=== PATIENT | female | born 1995 | race American Indian/Alaskan Native ===

== ENCOUNTER 2016-07-16 10:42 | Inpatient (IN) | payer MEDICAID ==
[2016-07-16] MEDS ORDERED: SUBLIMAZE IV PRN (10:50)
[2016-07-16] MEDS ORDERED: ePHEDrine SULFATE IV PRN (10:50)
[2016-07-16] MEDS ORDERED: NARCAN 0.4 MG/1 ML IV PRN ×2 (10:50→21:16)
[2016-07-16] MEDS ORDERED: BRETHINE IVP PRN (10:50)
[2016-07-16] MEDS ORDERED: BRETHINE SUB-Q PRN (10:50)
[2016-07-16] MEDS ORDERED: CERVIDIL VG ONE (10:50)
[2016-07-16] MEDS ORDERED: XYLOCAINE 2% INFILTRATI ONE (10:50)
[2016-07-16] MEDS ORDERED: MINERAL OIL PO PRN (10:50)
[2016-07-16] MEDS ORDERED: LACTATED RINGERS 1,000 ML IV SCH ×2 (11:00→18:00)
[2016-07-16] MEDS ORDERED: PITOCin/NS 20 UNIT/1000ML DRIP 20 UNITS/1,000 ML BAG IV SCH ×3 (11:00→22:00)
--- NOTE | 2016-07-16 11:00 | History and Physical Report ---
History of Present Illness Date of examination: 07/16/16 Date of admission: 07/16/16 10:42 Chief complaint: Seen by [facility] today and they recommend delivery, Due to abnormal doppler flow and pericardial effusion History of present illness: 21 y/O , now 37 weeks with care at [facility] since 7 weeks gestation. Hx of trich on and off during the . Had u/S in the office yesterday and baby was at 3% for growth. 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 Family/Genetic History: none Social history: no significant social history - Obstetrical History Expected Date of Delivery: 08/06/16 Actual Gestation: 37 Week(s) 0 Day(s) : 1 Para: 0 Hx # Term Pregnancies: 0 Number of Living Children: 0 Medications and Allergies Allergies Allergy/AdvReac Type Severity Reaction Status Date / Time No Known Allergies Allergy Unverified 02/07/16 07:47 Home Medications Medication Instructions Recorded Confirmed Last Taken Type Gummies 2 tab PO DAILY 07/16/16 07/16/16 07/15/16 08:00 History Review of Systems All systems: negative - Physical Exam Breasts: Positive: deferred Cardiovascular: Regular rate Lungs: Positive: Clear to auscultation Abdomen: Positive: soft Genitourinary (Female): Positive: normal external genitalia Vulva: both: normal Vagina: Positive: normal moisture Uterus: Positive: enlarged Anus/Rectum: Positive: normal perianal skin Deep Tendon Reflex Grade: Normal +2 - Obstetrical Uterine Contraction Monitor Mode: External Cervical Dilatation: 0 (in office yesterday) Uterine Contraction Pattern: Absent Results Result Diagrams: 07/16/16 12:02 All other labs normal. Assessment and Plan A: 37 week induction of labor due to abnormal doppler flow, pericardial effusion , and ARCENIO 6.9 P; Cervadil ripening
[2016-07-16 12:25] LABS: Hematocrit 35.4 % (30.3-42.9); Hemoglobin 11.9 gm/dl (10.1-14.3); Mean Corpuscular HGB Conc 34 % (30-34); Mean Corpuscular Hemoglobin 31 pg (28-32); Mean Corpuscular Volume 94 fl (79-97); Platelet Count 229 K/mm3 (140-440); Red Blood Count 3.79 M/mm3 (3.65-5.03); Red Cell Distribution Width 14.3 % (13.2-15.2); White Blood Count 8.5 K/mm3 (4.5-11.0)
[2016-07-16] MEDS ORDERED: FLAGYL 500 MG/100 ML 500 MG/100 ML BAG IV SCH (14:00)
[2016-07-16] MEDS ORDERED: REGLAN IV SCH (17:27)
[2016-07-16] MEDS ORDERED: ANCEF/STERILE WATER 2 GM/20 ML 2 GM/20 ML SYRINGE IV ONE (17:57)
[2016-07-16] MEDS ORDERED: PEPCID IV ONE (18:00)
[2016-07-16] MEDS ORDERED: BICITRA PO ONE (18:00)
--- NOTE | 2016-07-16 19:27 | Event Note ---
Date: 07/16/16 Called to see patient to be having distress. Patient is 21-year-old at 37 weeks with complicated by IUGR EFW at the 1st percentile. Patient was apparently seen at [facility] today and abnormal Dopplers were noted. Patient also appears to have an enlarged heart taken up over 50% of the cavity. In view of patient's non-tolerance of labor with deep variable decelerations surgeon has made to proceed with primary . Patient has been consented and has signed. Also discussed with NICU extensively about patient's present diagnosis and suspected cardiomegaly of the fetus. Tool Dresser will be present at delivery per NICU
[2016-07-16] MEDS ORDERED: NACL 0.9% IR ONE (20:20)
[2016-07-16] MEDS ORDERED: WATER FOR IRRIG STERILE IR ONE (20:20)
[2016-07-16] MEDS ORDERED: MORPHINE ONE (21:00)
[2016-07-16] MEDS ORDERED: ZOFRAN ONE (21:00)
--- NOTE | 2016-07-16 21:14 | Operative Report ---
Operative Report Operative Report: DATE: 07/16/2016 PREOPERATIVE DIAGNOSIS: 21-year-old at 37 weeks, IUGR w/ EFW < 1%, cat 2 tracing, suspected cardiomegaly POSTOP DIAGNOSIS: Above NAME OF PROCEDURE: Primary low transverse section SURGEON: AMPARO OJEDA MD CURING OVEN TENDER: [] ANESTHESIA: Spinal EBL: 500 mL PATHOLOGY SPECIMEN: Placenta URINE OUTPUT: 100 mL FINDINGS: in cephalic presentation, time of was 20:35, infant weight was 4 lbs. 2 oz. or 1860 grams, Apgars 7 and 8, normal uterus tubes and ovaries bilaterally DESCRIPTION OF PROCEDURE: After informed consent, patient was taken to the operating room where she was prepped and draped in a sterile fashion. Pfannestial incision was performed 2 cm above the pubic symphysis. This was then carried down to the underlying rectus fascia which was scored in the midline. The fascial incision was extended laterally with the use of Perera scissors, anterior leaf was then grasped with Edie's elevated dissected sharply and bluntly off the underlying rectus. In a similar fashion the inferior leaf was grasped elevated dissected sharply and bluntly off the underlying rectus. The rectus was in the midline and the peritoneal cavity was entered without difficulty. After good visualization of the bladder the peritoneal layer was extended up and down; bladder blade was placed in the patient's pelvic cavity, bladder flap was created without difficulty. A hysterotomy incision was then performed with clear amniotic fluid noted. Infant in cephalic presentation was delivered without difficulty in the usual manner; cord was clamped cut and infant was handed over to waiting NICU staff. The placenta was then delivered intact, the uterus was then exteriorized cleared of all clots and debris. Her hysterotomy incision was then closed in a running locked fashion with 0 Vicryl on a CTX; using the same suture were able to imbricate the initial layer. The uterus was then returned to the patient's pelvic cavity; the peritoneal edges were grasped with hemostats and Maria D's; irrigation was used to clear the gutters of all clots and debris. Tisseel hemostatic agent was applied copiously over the hysterotomy incision. The bladder flap was then closed in a running fashion with 3-0 Vicryl. The peritoneal layer was closed in a running fashion with 3-0 Vicryl; the rectus was reapproximated with a single [id number] stitch. The fascia was then closed in a running fashion with 0 Vicryl; the subcutaneous layer was reapproximated with a single [id number] stitch. The skin was then closed in a subcuticular manner with 4-0 Monocryl. She tolerated the procedure well lap and instrument counts were correct 2, she did receive 2 grams of Ancef prior to the procedure. She is transferred to PACU in stable condition.
[2016-07-16] MEDS ORDERED: LANSINOH TP PRN (21:16)
[2016-07-16] MEDS ORDERED: SENOKOT PO PRN (21:16)
[2016-07-16] MEDS ORDERED: MYLICON PO PRN (21:16)
[2016-07-16] MEDS ORDERED: TUCKS PAD TP PRN (21:16)
[2016-07-16] MEDS ORDERED: TYLENOL PO PRN (21:16)
[2016-07-16] MEDS ORDERED: ANUCORT-HC PR PRN (21:16)
[2016-07-16] MEDS ORDERED: MOTRIN PO PRN (21:16)
[2016-07-16] MEDS ORDERED: ZOFRAN IV PRN (21:16)
[2016-07-16] MEDS ORDERED: MILK OF MAGNESIA PO PRN (21:16)
--- NOTE | 2016-07-16 21:25 | Anesthesia Consultation ---
Anesthesia Consult and Med Hx Date of service: 07/16/16 - Airway Anesthetic Teeth Evaluation: Good ROM Head & Neck: Adequate Mental/Hyoid Distance: Adequate Mallampati Class: Class II Intubation Access Assessment: Good - Pulmonary Exam CTA: Yes - Cardiac Exam Cardiac Exam: RRR - Pre-Operative Health Status ASA Pre-Surgery Classification: ASA2, Emergency Proposed Anesthetic Plan: Spinal - Pulmonary Hx Asthma: No COPD: No Hx Pneumonia: No - Cardiovascular System Hx Hypertension: No - Central Nervous System Hx Seizures: No Hx Psychiatric Problems: No - Endocrine Hx Renal Disease: No Hx End Stage Renal Disease: No Hx Hypothyroidism: No Hx Hyperthyroidism: No - Hematic Hx Anemia: No Hx Sickle Cell Disease: No - Other Systems Hx Alcohol Use: No
--- NOTE | 2016-07-16 21:26 | Anesthesia Day of Surgery ---
Anesthesia Day of Surgery - Day of Surgery Patient Examined: Yes Patient H&P Reviewed: Yes Patient is NPO: Yes (FSP)
--- NOTE | 2016-07-16 21:26 | Post Anesthesia Evaluation ---
- Post Anesthesia Evaluation Patient Participated: Yes Airway Patent: Yes Stable Respiratory Function: Yes Temp > 96.8F: Yes Pain Manageable: Yes Adequeate Hydration: Yes Anesthesia Complications: No Block Receding Appropriately: Yes
[2016-07-16] MEDS ORDERED: SODIUM CHLORIDE FLUSH SYRINGE 10 ML IV SCH (22:00)
[2016-07-16] MEDS ORDERED: D5LR 1,000 ML IV SCH (22:00)
[2016-07-17] MEDS: TORADOL IV PRN ×3 (00:53→21:49)
[2016-07-17 10:31] LABS: Hematocrit 33.6 % (30.3-42.9); Hemoglobin 11.2 gm/dl (10.1-14.3)
[2016-07-17] MEDS: FEOSOL PO SCH (12:07)
[2016-07-17] MEDS: PRENATAL VITAMIN PO SCH (12:07)
[2016-07-17] MEDS: PERCOCET 5/325 PO PRN (12:09)
--- NOTE | 2016-07-17 14:13 | Progress Note ---
Assessment and Plan A: POD #1 - stable P: Continue postop care Subjective - Subjective Date of service: 07/17/16 Principal diagnosis: Primary for intolerance of labor Interval history: 21 y/O , now 37 weeks with care at [facility] since 7 weeks gestation. Hx of trich on and off during the . Had u/S in the office yesterday and baby was at 3% for growth. Had [facility] F/U today, baby with pericardial effusion, abnormal doppler, and ARCENIO 6.9 Patient reports: appetite normal Volin: in NICU Objective - Vital Signs Latest vital signs: Vital Signs Temp Pulse Pulse Resp BP BP Pulse Ox 07/17/16 11:51 98.3 F 84 18 110/73 07/17/16 07:00 98.8 F 82 18 115/62 07/17/16 04:50 98.4 F 86 20 116/66 07/16/16 22:45 96 F L 77 18 125/79 07/16/16 22:14 98.0 F 07/16/16 22:06 85 13 121/79 100 07/16/16 22:00 84 11 L 121/79 100 07/16/16 21:55 76 11 L 116/72 100 07/16/16 21:50 78 20 108/59 99 07/16/16 21:45 82 15 101/69 99 07/16/16 21:40 88 21 103/73 100 07/16/16 21:36 82 15 103/73 99 07/16/16 21:30 82 19 108/72 98 07/16/16 21:25 87 9 L 102/70 98 07/16/16 21:20 81 10 L 101/57 97 07/16/16 21:16 97.6 F 90 16 96 07/16/16 21:14 96 07/16/16 19:22 85 118/76 07/16/16 19:00 97.8 F 07/16/16 18:09 86 115/66 07/16/16 17:39 91 H 113/75 07/16/16 16:14 98.0 F 18 Intake and Output 07/16/16 07/17/16 07/17/16 22:59 06:59 14:59 Intake Total 3200 240 Output Total 150 500 Balance 3050 -260 Intake: IV 3200 FLAGYL 500 MG/100 ML 500 100 mg In 100 ml @ 100 mls/hr IV Q12H NANCY Rx#: [id number] Lactated Ringers 1,000 ml 1000 @ 125 mls/hr IV DIRECT [facility] Rx#:[id number] Intake, Free Water 240 Output: Urine 150 500 Indwelling Catheter 500 Other: Total, Output Amount 500 Estimated Blood Loss 500 - Exam Breasts: Present: deferred Cardiovascular: Present: Regular rate Lungs: Present: Clear to auscultation Abdomen: Present: soft Vulva: both: normal Uterus: Present: fundal height below umbilicus Extremities: Present: normal Deep Tendon Reflex Grade: Normal +2 Incision: Present: dressed
[2016-07-18] MEDS: TORADOL IV PRN (07:00)
--- NOTE | 2016-07-18 09:49 | Progress Note ---
Assessment and Plan A: 2nd POD - stable P: ambulating, plan discharge in am Subjective - Subjective Principal diagnosis: Primary for intolerance of labor Interval history: 21 y/O , now 37 weeks with care at [facility] since 7 weeks gestation. Hx of trich on and off during the . Had u/S in the office yesterday and baby was at 3% for growth. Had [facility] F/U today, baby with pericardial effusion, abnormal doppler, and ARCENIO 6.9 Patient reports: appetite normal : in NICU Objective - Vital Signs Latest vital signs: Vital Signs Temp Pulse Resp BP 07/18/16 07:00 18 07/18/16 00:23 98.5 F 101 H 20 125/79 07/17/16 21:49 18 07/17/16 18:15 98 F 95 H 18 111/80 07/17/16 11:51 98.3 F 84 18 110/73 Intake and Output 07/17/16 07/18/16 07/18/16 22:59 06:59 14:59 Intake Total 780 Output Total 350 Balance 430 Intake: Oral 540 Intake, Free Water 240 Output: Urine 350 Indwelling Catheter 350 Other: Total, Intake Amount 540 Total, Output Amount 350 # Voids Indwelling Catheter 600 - Exam Breasts: Present: deferred Cardiovascular: Present: Regular rate Lungs: Present: Clear to auscultation Abdomen: Present: soft Vulva: both: normal Extremities: Present: normal Deep Tendon Reflex Grade: Normal +2 Incision: Present: intact
--- NOTE | 2016-07-18 09:50 | Discharge Summary ---
Providers - Providers Date of Admission: 07/16/16 10:42 Date of discharge: 07/19/16 Attending physician: YOU FISHER MD Primary care physician: ELEPHANT KEEPER Hospitalization Reason for admission: induction of labor Delivery: Procedure: section Episiotomy: none Laceration: none complications: none Discharge diagnosis: IUP at term delivered baby: male Condition at discharge: Good Disposition: DISCHARGED TO HOME OR SELFCARE Plan - Discharge Medications Prescriptions: Ibuprofen [Motrin 600 MG tab] 600 mg PO Q8H PRN #30 tablet PRN Reason: Pain Multivitamin with Iron [Multivitamins with Iron] 1 each PO DAILY #30 tablet oxyCODONE /ACETAMINOPHEN [Percocet 5/325] 1 tab PO Q6HR PRN #30 tablet PRN Reason: Pain - Provider Discharge Summary Additional instructions: [] Smoking cessation referral if applicable(refer to patient education folder for contact #) [] Refer to [facility] Booklet Call your doctor immediately for: * Fever > 100.5 * Heavy vaginal bleeding ( >1 pad per hour) * Severe persistent headache * Shortness of breath * Reddened, hot, painful area to leg or breast * Drainage or odor from incision. * Keep incision clean and dry at all times and follow doctor's instructions regarding bathing/showering - Follow up plan Follow up: [facility] [Provider Group] - 14 Days
[2016-07-18] MEDS: PRENATAL VITAMIN PO SCH (18:42)
[2016-07-18] MEDS: FEOSOL PO SCH (18:42)
[2016-07-18] MEDS: PERCOCET 5/325 PO PRN (19:31)
[2016-07-19] MEDS: PERCOCET 5/325 PO PRN (18:14)
[2016-07-19 18:57] VITALS: BP 135/78
== END 2016-07-19 21:20 | disposition home or self-care (01) | DRG 765 ==
LOC: LD 10:42 → OB 22:52
PROVIDERS: ADMIT Obstetrics & Gynecology; ATTEND Obstetrics & Gynecology
PROC: 10D00Z1 Extraction of Products of Conception, Low, Open Approach (ICD-10-PCS; principal; 2016-07-16)
DX: O77.9 Labor and delivery complicated by fetal stress, unspecified (principal); O98.82 Other maternal infectious and parasitic diseases complicating childbirth; A59.9 Trichomoniasis, unspecified; O36.5930 Maternal care for other known or suspected poor fetal growth, third trimester, not applicable or unspecified; Z3A.37 37 weeks gestation of pregnancy; Z37.0 Single live birth
CPT/HCPCS: 36415; 59200; 85014; 85018; 85027; 86850; 86900; 86901; 88307; 99211; C9250; G0463; J0690; J1885; J2270; J2405; J2590; J2765; J7120; J7121

== ENCOUNTER 2017-01-09 13:43 | Emergency (ER) | payer MEDICAID ==
[2017-01-09 13:53] VITALS: BP 107/71
== END 2017-01-09 14:45 | disposition left against medical advice (07) ==
LOC: ED 13:43
DX: R55 Syncope and collapse (principal); E86.0 Dehydration; Z53.21 Procedure and treatment not carried out due to patient leaving prior to being seen by health care provider
CPT/HCPCS: 93005; 93010

== ENCOUNTER 2018-08-16 09:03 | Emergency (ER) | payer MEDICAID ==
[2018-08-16 09:13] VITALS: BP 103/61
[2018-08-16 10:02] LABS: Bacteria,Urine 1+ /HPF (Negative); Bilirubin,Urine NEG (Negative); Blood,Urine NEG (Negative); Color,Urine Yellow (Yellow); Mucus,Urine FEW /HPF; Protein,Urine <15 mg/dL mg/dL (Negative); Urobilinogen,Urine < 2.0 mg/dL (<2.0)
[2018-08-16 10:19] LABS: HCG Qualitative,Urine Positive (Negative)
--- NOTE | 2018-08-16 11:19 | XRay Report ---
XR spine cervical 2-3V INDICATION / CLINICAL INFORMATION: Pain after fall. COMPARISON: None available. FINDINGS: BONES/JOINT(S): No vertebral fracture. No significant degenerative changes. SOFT TISSUES: No significant abnormality. ADDITIONAL FINDINGS: None. Signer Name: Hola Edwards MD Signed: 08/16/2018 11:14 AM Workstation Name: [id number]
--- NOTE | 2018-08-16 13:25 | Ultrasound Report ---
FIRSTTRIMESTER OBSTETRIC ULTRASOUND HISTORY: Abdominal pain during , acute pelvic pain COMPARISON: None. TECHNIQUE: Routine transabdominal and transvaginal OB ultrasound performed. FINDINGS: Uterus: The uterus is anteverted and normal size measuring 8.9 x 5.3 x 7.2 cm. Gestational Sac: The gestational sac appears irregular and elongated Yolk Sac: Normal in appearance. Fetus/Embryo: [place] 1-rump length of 0.31 cm, corresponding to an estimated gestational age of 7 weeks 6 days. Embryonic/ anatomy is too small for evaluation. Embryonic/ cardiac activity: 0bpm Placenta: Too small for evaluation. Amniotic fluid volume: Subjectively appropriate for gestational age. Ovaries: The right ovary is normal in size and appearance with normal blood flow, measuring 2.9 x 1. 6 x 2.2 cm. The left ovary is normal in size and appearance with normal blood flow, measuring 3.5 x 2.9 x 2.2 cm. Hypoechoic space-occupying mass in the left ovary with peripheral vascularity is most likely the corpus luteum. Additional findings: There is debris within the lower uterine segment which may represent blood produ cts. IMPRESSION Findings consistent with demise. Signer Name: Miguel Frazier Jr, MD Signed: 08/16/2018 1:21 PM Workstation Name: [id number]
--- NOTE | 2018-08-16 14:14 | Emergency Department Report ---
ED General Adult HPI - General Chief complaint: Dizziness Stated complaint: SICK Time Seen by Provider: 08/16/18 09:39 Source: patient Mode of arrival: Ambulatory Limitations: No Limitations - History of Present Illness Initial comments: Patient is a 23-year-old female who is approximately 8-9 weeks who is here for 2 issues. Issue #1 is a patient fell at work 2 days ago and has some generalized neck discomfort. Patient states she was seen at [facility] after the fall and she states no known did anything for. Patient states she has some achy pains as a 5 out of 10 in severity her is worse with movement better with rest. Patient slipped on a wet floor. There was no loss of consciousness and no head injury. Patient's other issue is that she also has some lower abdominal crampiness. Patient has had this for the last 2 days. Patient has had no vaginal bleeding. Patient saw to TW[facility] DOFFER's this week. The first stated that her baby had no heartbeat and wanted to give her medications to initiate an . The second physician stated that he believes she was very early in her and just needed more time before heartbeat could be seen. Patient is confused about what going on with her and is here for a third opinion Severity scale (0 -10): 10 - Related Data Home Medications Medication Instructions Recorded Confirmed Last Taken Gummies 2 tab PO DAILY 07/16/16 07/16/16 07/15/16 08:00 Previous Rx's Medication Instructions Recorded Last Taken Type Ibuprofen [Motrin 600 MG tab] 600 mg PO Q8H PRN #30 tablet 07/16/16 Unknown Rx Multivitamin with Iron 1 each PO DAILY #30 tablet 07/16/16 Unknown Rx [Multivitamins with Iron] oxyCODONE /ACETAMINOPHEN [Percocet 1 tab PO Q6HR PRN #30 tablet 07/16/16 Unknown Rx 5/325] Cyclobenzaprine [Flexeril] 5 mg PO TID PRN #10 tablet 08/16/18 Unknown Rx Allergies Allergy/AdvReac Type Severity Reaction Status Date / Time No Known Allergies Allergy Verified 08/16/18 09:05 ED Review of Systems ROS: Stated complaint: SICK Other details as noted in HPI Comment: All other systems reviewed and negative ED Past Medical Hx - Past Medical History Previous Medical History?: No Hx Hypertension: No Hx Congestive Heart Failure: No Hx Diabetes: No Hx Deep Vein Thrombosis: No Hx Renal Disease: No Hx Sickle Cell Disease: No Hx Seizures: No Hx Asthma: No Hx COPD: No Hx HIV: No - Surgical History Past Surgical History?: Yes Additional Surgical History: - Social History Smoking Status: Never Smoker Substance Use Type: None - Medications Home Medications: Home Medications Medication Instructions Recorded Confirmed Last Taken Type Ibuprofen [Motrin 600 MG tab] 600 mg PO Q8H PRN #30 tablet 07/16/16 Unknown Rx Multivitamin with Iron 1 each PO DAILY #30 tablet 07/16/16 Unknown Rx [Multivitamins with Iron] Gummies 2 tab PO DAILY 07/16/16 07/16/16 07/15/16 08:00 History oxyCODONE /ACETAMINOPHEN [Percocet 1 tab PO Q6HR PRN #30 tablet 07/16/16 Unknown Rx 5/325] Cyclobenzaprine [Flexeril] 5 mg PO TID PRN #10 tablet 08/16/18 Unknown Rx ED Physical Exam - General Limitations: No Limitations General appearance: alert, in no apparent distress - Head Head exam: Present: atraumatic, normocephalic - Eye Eye exam: Present: normal appearance - ENT ENT exam: Present: mucous membranes moist - Neck Neck exam: Present: normal inspection, tenderness (generalized) - Respiratory Respiratory exam: Present: normal lung sounds bilaterally. Absent: respiratory distress, wheezes, rales, rhonchi - Cardiovascular Cardiovascular Exam: Present: regular rate, normal rhythm. Absent: systolic murmur, diastolic murmur, rubs, gallop - GI/Abdominal GI/Abdominal exam: Present: soft, normal bowel sounds - Extremities Exam Extremities exam: Present: normal inspection - Back Exam Back exam: Present: normal inspection - Neurological Exam Neurological exam: Present: alert, oriented X3 - Psychiatric Psychiatric exam: Present: normal affect, normal mood - Skin Skin exam: Present: warm, dry, intact, normal color. Absent: rash ED Course Vital Signs 08/16/18 08/16/18 09:10 09:31 Temperature 97.4 F L Pulse Rate 82 Respiratory 18 15 Rate Blood Pressure 103/61 [Right] O2 Sat by Pulse 99 Oximetry ED Medical Decision Making - Lab Data Lab Results 08/16/18 08/16/18 Range/Units 09:24 10:16 HCG, Quant [id number] H (0-4) mIU/mL Urine Color Yellow (Yellow) Urine Turbidity Slightly-cloudy (Clear) Urine pH 6.0 (5.0-7.0) Ur Specific [place] 1.016 (1.003-1.030) Urine Protein <15 mg/dl (Negative) mg/dL Urine Glucose (UA) Neg (Negative) mg/dL Urine Ketones Neg (Negative) mg/dL Urine Blood Neg (Negative) Urine Nitrite Neg (Negative) Urine Bilirubin Neg (Negative) Urine Urobilinogen < 2.0 (<2.0) mg/dL Ur Leukocyte Esterase Mod (Negative) Urine WBC (Auto) 1.0 (0.0-6.0) /HPF Urine RBC (Auto) 2.0 (0.0-6.0) /HPF U Epithel Cells (Auto) 4.0 (0-13.0) /HPF Urine Bacteria (Auto) 1+ (Negative) /HPF Urine Mucus Few /HPF Urine HCG, Qual Positive A (Negative) - Radiology Data [facility] [address] [place] [address] Ultrasound Report Signed Patient: KONRAD CASTRO MR #: [id number] : 1995 Acct:[id number] Age/Sex: 23 / F ADM Date: 08/16/18 Loc: ED Attending Dr: Ordering Physician: STEPHANIE PRINCE MD Date of Service: 08/16/18 Procedure(s): OB transvaginal Accession Number(s): [id number] cc: STEPHANIE PRINCE MD [facility]IME[facility] OBSTETRIC ULTRASOUND HISTORY: Abdominal pain during , acute pelvic pain COMPARISON: None. TECHNIQUE: Routine transabdominal and transvaginal OB ultrasound performed. FINDINGS: Uterus: The uterus is anteverted and normal size measuring 8.9 x 5.3 x 7.2 cm. Gestational Sac: The gestational sac appears irregular and elongated Yolk Sac: Normal in appearance. Fetus/Embryo: [place]-rump length of 0.31 cm, corresponding to an estimated gestational age of 7 weeks 6 days. Embryonic/ anatomy is too small for evaluation. Embryonic/ cardiac activity: 0bpm Placenta: Too small for evaluation. Amniotic fluid volume: Subjectively appropriate for gestational age. Ovaries: The right ovary is normal in size and appearance with normal blood flow, measuring 2.9 x 1.6 x 2.2 cm. The left ovary is normal in size and appearance with normal blood flow, measuring 3.5 x 2.9 x 2.2 cm. Hypoechoic space-occupying mass in the left ovary with peripheral vascularity is most likely the corpus luteum. Additional findings: There is debris within the lower uterine segment which may represent blood products. IMPRESSION Findings consistent with demise. Signer Name: Miguel Jensen Jr, MD Signed: 08/16/2018 1:21 PM Workstation Name: [id number] Transcribed By: TTR Dictated By: MIGUEL JENSEN JR, MD Electronically Authenticated By: MIGUEL JENSEN JR, MD Signed Date/Time: 08/16/18 1321 C spine XR withibn normal limits - Medical Decision Making Patient is a 23-year-old female who had a fall 2 days ago and also sessile crampy lower abdominal pain and is worried about miscarriage. Regarding the patient's neck injury patient's C-spine x-ray is within normal limits. Patient to be started on Flexeril which is safe in and can use ice therapy. Regarding the patient's the patient had an ultrasound done today which does show an irregular shaped gestational sac with no pole. This is a concerning for demise. Patient likely is an early stages of miscarriage however patient is to return if she starts having heavy bleeding otherwise she should come in 2-3 days for repeat Quant.. When we get a second Quant will know what the patient is having a miscarriage or has a growing Critical care attestation.: If time is entered above; I have spent that time in minutes in the direct care of this critically ill patient, excluding procedure time. ED Disposition Clinical Impression: Threatened miscarriage Cervical strain Qualifiers: Encounter type: initial encounter Qualified Code(s): S16.1XXA - Strain of muscle, fascia and tendon at neck level, initial encounter Disposition: -01 TO HOME OR SELFCARE Is pt being admited?: No Does the pt Need Aspirin: No Condition: Stable Instructions: Cervical Spine Strain (ED), Threatened Miscarriage (ED) Additional Instructions: Your beta Quant or number is 38,000 today. In 2-3 days this will double if you are still . Time of Disposition: 14:06
== END 2018-08-16 14:15 | disposition home or self-care (01) ==
LOC: ED 09:03
DX: O9A.211 Injury, poisoning and certain other consequences of external causes complicating pregnancy, first trimester (principal); S16.1XXA Strain of muscle, fascia and tendon at neck level, initial encounter; O20.0 Threatened abortion; Z79.1 Long term (current) use of non-steroidal anti-inflammatories (NSAID); Z79.899 Other long term (current) drug therapy; Z3A.01 Less than 8 weeks gestation of pregnancy; W01.198A Fall on same level from slipping, tripping and stumbling with subsequent striking against other object, initial encounter; Y93.89 Activity, other specified; Y92.098 Other place in other non-institutional residence as the place of occurrence of the external cause; Y99.8 Other external cause status
CPT/HCPCS: 36415; 72040; 76801; 76817; 81001; 81025; 84702